=== PATIENT | male | born 1970 | race Two or more races ===

== ENCOUNTER 2016-12-30 11:36 | Emergency (ER) | payer SELFPAY ==
[~2016-12-30] VITALS: Ht 172.7 cm; Wt 81.6 kg
[2016-12-30 12:18] VITALS: BP 156/98
== END 2016-12-30 13:25 | disposition home or self-care (01) ==
LOC: ER 11:46
DX: L02.412 Cutaneous abscess of left axilla (principal); F17.210 Nicotine dependence, cigarettes, uncomplicated
CPT/HCPCS: 10060

== ENCOUNTER 2017-03-24 08:25 | Emergency (ER) | payer SELFPAY ==
[~2017-03-24] VITALS: Ht 172.7 cm; Wt 104.3 kg
[2017-03-24 08:30] VITALS: BP 157/100
[2017-03-24] MEDS ORDERED: cefTRIAXone SOD 1,000 MG VL IM ONE (09:00)
[2017-03-24] MEDS ORDERED: IBUPROFEN 800 MG TAB PO ONE (09:00)
== END 2017-03-24 09:47 | disposition home or self-care (01) ==
LOC: ER 08:25
DX: K04.7 Periapical abscess without sinus (principal); F17.210 Nicotine dependence, cigarettes, uncomplicated
CPT/HCPCS: 96372; 99283; J0696